=== PATIENT | male | born 1930 | race Caucasian/White ===

== ENCOUNTER 2018-05-18 19:28 | Inpatient (IN) | payer OTHER ==
[~2018-05-18] VITALS: Ht 170.2 cm; Wt 70.3 kg
[2018-05-18] MEDS ORDERED: QUETIAPINE FUMA25 MG (20:01)
[2018-05-18] MEDS ORDERED: ATORVASTATIN CA10 MG (20:02)
[2018-05-18] MEDS ORDERED: LANSOPRAZOLE30 MG (20:02)
[2018-05-18] MEDS ORDERED: TAMS0.4C (20:03)
[2018-05-18] MEDS ORDERED: CARVEDILOL12.5 MG (20:03)
[2018-05-18] MEDS ORDERED: [UNRECOGNIZED DRUG - OTHER] (20:04)
== END 2018-06-09 18:19 | disposition home or self-care (01) | DRG 207 ==
LOC: ER 19:28 → MEDI 05-19 10:16 → SEC-K 05-19 10:16 → MEDI 05-19 12:05
PROVIDERS: ADMIT Internal Medicine
PROC: 4A12X4Z Monitoring of Cardiac Electrical Activity, External Approach (ICD-10-PCS; 2018-05-19)
PROC: 3E0F7GC Introduction of Other Therapeutic Substance into Respiratory Tract, Via Natural or Artificial Opening (ICD-10-PCS; 2018-05-19)
PROC: B246ZZZ Ultrasonography of Right and Left Heart (ICD-10-PCS; 2018-05-20)
PROC: 4A033R1 Measurement of Arterial Saturation, Peripheral, Percutaneous Approach (ICD-10-PCS; 2018-05-26)
PROC: 0BH17EZ Insertion of Endotracheal Airway into Trachea, Via Natural or Artificial Opening (ICD-10-PCS; principal; 2018-06-01)
PROC: 5A1955Z Respiratory Ventilation, Greater than 96 Consecutive Hours (ICD-10-PCS; 2018-06-01)
DX: J44.1 Chronic obstructive pulmonary disease with (acute) exacerbation (principal); I50.23 Acute on chronic systolic (congestive) heart failure; J96.01 Acute respiratory failure with hypoxia; B37.1 Pulmonary candidiasis; J15.211 Pneumonia due to Methicillin susceptible Staphylococcus aureus; N39.0 Urinary tract infection, site not specified; C79.51 Secondary malignant neoplasm of bone; B37.0 Candidal stomatitis; J98.11 Atelectasis; I47.2 Ventricular tachycardia; I25.10 Atherosclerotic heart disease of native coronary artery without angina pectoris; R31.0 Gross hematuria; C67.8 Malignant neoplasm of overlapping sites of bladder; Y95 Nosocomial condition; Z95.1 Presence of aortocoronary bypass graft; J20.9 Acute bronchitis, unspecified; I11.0 Hypertensive heart disease with heart failure; J44.0 Chronic obstructive pulmonary disease with (acute) lower respiratory infection; K80.20 Calculus of gallbladder without cholecystitis without obstruction